=== PATIENT | female | born 1990 | race Two or more races ===

== ENCOUNTER 2024-03-24 03:25 | Emergency (ER) | payer OTHER, SELFPAY ==
--- NOTE | ~2024-03-24 | XR_ITS ---
EXAMINATION: XR SOFT TISSUE NECK CLINICAL INDICATION: Stuck tablet. COMPARISON: None available. TECHNIQUE: 2 views of the soft tissue neck were obtained. FINDINGS: Soft tissue films of the neck demonstrate a normal larynx, pharynx and upper trachea. No soft tissue swelling or opaque foreign body is demonstrated. XR/XR soft tissue neck IMPRESSION: Unremarkable examination.
[2024-03-24 03:35] VITALS: BP 147/107; PULSE 94; RESP 18; TEMP 36.9; O2SAT 98; BMI 27.6
--- NOTE | 2024-03-24 04:37 | ED_ITS ---
HPI - General Adult General Chief complaint: General Medical Stated complaint: something stuck in throat Time Seen by Provider: 03/24/24 04:37 Source: patient Mode of arrival: ambulatory Limitations: no limitations History of Present Illness ED Provider: richard CRISTINA narrative: Patient no significant past medical history apparently took Tylenol and ibuprofen earlier today and feel that tablets stuck in lower part of the throat patient has tried to drink liquids and and send which is still feels same speech is normal breathing is normal no history of similar episode in the past Related Data Allergies Allergy/AdvReac Type Severity Reaction Status Date / Time No Known Allergies Allergy Unverified 03/24/24 03:35 [No Known Allergies*] Review of Systems Review of Systems: Yes all other systems are reviewed and are negative PMFSH Social History Social History Advance Directives: No Advance Directives Information Provided: Yes Physical Exam ED Vital Signs: Vital Signs - 24 hr 03/24/24 03:35 03/24/24 06:20 Temperature 98.4 F 98.2 F Pulse Rate 94 87 Respiratory Rate 18 15 Blood Pressure 147/107 H 140/91 H Pulse Oximetry 98 99 Oxygen Delivery Method Room Air Room Air BMI result Body Mass Index 27.6 Appearance: Alert. Oriented X3. No acute distress. Neck: Normal inspection. Neck supple. No stridor CVS: Normal heart rate and rhythm. Pulses normal. Respiratory: No respiratory distress. Equal air entry bilateral, no wheezing/rales/rhonchi Abdomen: Soft and nontender. Bowel sounds are present, Skin: Skin warm and dry. Normal skin color. Normal skin turgor. Neuro: Oriented X 3. Medications Administered Discontinued Medications Generic Name Dose Route Start Last Admin Trade Name Freq PRN Reason Stop Dose Admin Lidocaine HCl 15 ml 03/24/24 05:45 03/24/24 06:15 Lidocaine Hcl Viscous 2 % 15 Ml Solution MUCOUS MEM 03/24/24 05:46 15 ml ONCE ONE Administration Medical Decision Making Medical Decision Making [facility] Narrative: Patient with foreign body sensation in the throat x-ray negative for any radiopaque object will give lidocaine viscous advised drink plenty of fluids Independent Interpretation I performed an independent interpretation of an: Plain X-Ray Radiology Impression Discussion of test interpretation with radiology: I have reviewed the radiologist's reading. Discharge Plan Discharge Clinical Impression: Foreign body sensation, throat Patient Disposition: Home, Self-Care Instructions: Foreign Body in Pharynx (ED) Additional Instructions: No foreign body seen in the ex your feeling is likely from irritation Drink plenty of fluids Follow with PCP if any concerns Stand Alone Forms: Work/School Release Interventions: ED Discharge Assessment Last Done: 03/24/24 06:20 Discharge Date/Time: 03/24/24 06:22 Print Language: Lithuanian
[2024-03-24] MEDS: Lidocaine HCl Viscous 2 % 15 ML SOLUTION MUCOUS MEM (06:15)
[2024-03-24 06:20] VITALS: BP 140/91; PULSE 87; RESP 15; TEMP 36.8; O2SAT 99
== END 2024-03-24 06:22 | disposition home or self-care (01) ==
PROVIDERS: Emergency Provider Internal Medicine
DX: R09.A2 Foreign body sensation, throat (principal)
CPT/HCPCS: 70360; 99283